=== PATIENT | male | born 1965 | race African-American/Black ===

== ENCOUNTER 2019-06-07 20:59 | Emergency (ER) | payer BC, MEDICAID ==
[~2019-06-07] VITALS: Ht 188 cm; Wt 104.3 kg
[~2019-06-07 20:59] MED LIST: CYCLOBENZAPRINE10 MG ORAL; IBUPROFEN600 MG ORAL; MULTIVITAMINS1 EAC2 ORAL
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
[2019-06-07] MEDS ORDERED: IBUPROFEN600 MG ORAL (21:39)
[2019-06-07 21:44] VITALS: BP 125/75
--- NOTE | 2019-06-07 21:44 | NUR ---
ER DISCHARGE NOTE: Patient is cleared to be discharged per ERMD, pt is aox4, on room air, with stable vital signs. pt was given dc and prescription instructions, pt was able to verbalize understanding, pt id band removed without complications. pt is able to ambulate with steady gait. pt took all belongings.
[2019-06-07 21:45] VITALS: BP 125/75
--- NOTE | 2019-06-08 12:33 | Diagnostic Imaging Report ---
Indication: Neck Pain Findings: 3 views of the cervical spine were obtained. There is narrowing of the C5-6 disc with mild endplate osteophyte formation. There is no malalignment. The lateral view is suboptimal due to rotation. There is no soft tissue swelling. IMPRESSION: No obvious acute injury some limitations as above
== END 2019-06-07 21:45 | disposition home or self-care (01) ==
LOC: EMR 21:15
DX: S16.1XXA Strain of muscle, fascia and tendon at neck level, initial encounter (principal); R51 Headache; V43.52XA Car driver injured in collision with other type car in traffic accident, initial encounter; Y92.410 Unspecified street and highway as the place of occurrence of the external cause
CPT/HCPCS: 72040; 99283